=== PATIENT | female | born 1965 | race Caucasian/White ===

== ENCOUNTER 2017-02-16 07:50 | Emergency (ER) | END 2017-02-16 12:55 | disposition home or self-care (01) ==

== ENCOUNTER 2017-09-27 02:15 | Emergency (ER) | END 2017-09-27 04:58 | disposition home or self-care (01) ==

== ENCOUNTER 2017-10-29 11:15 | Inpatient (IN) | END 2017-11-01 15:40 | disposition home or self-care (01) | DRG 287 ==